=== PATIENT | female | born 1945 | race Caucasian/White ===

== ENCOUNTER 2017-12-08 09:34 | Emergency (ER) | payer MEDICARE, OTHER ==
[~2017-12-08] VITALS: Ht 157.5 cm; Wt 93.0 kg
[~2017-12-08 09:34] MED LIST: ASPI81TA82 PO; CARV3.12 PO; FENO160T2 PO; FURO40TA PO; GLYB1TAB51 PO; LANTINJ SQ; LISI2.5T3 PO; POTA-243 PO; PRAV20 PO; RIVA20 PO; SOTA80TA PO; TAMO20TA4 PO
[2017-12-08 09:37] VITALS: BP 116/58; PULSE 95; RESP 16; TEMP 98.9; O2SAT 94
--- NOTE | 2017-12-08 09:54 | PD ---
HPI Chief Complaint: Skin Problem Time Seen by Provider: 09:42 Travel History International Travel<30 days: No Contact w/Intl Traveler<30days: No Traveled to known affect area: No History of Present Illness HPI This 72-year-old female complaining of swelling of her right arm. It was quite red yesterday. The redness has improved considerably but she has persistent swelling. She has a history of clot in her right leg for which she had surgery. It sounds like it was not an arterial clot. She has on Xarelto. She has a pacemaker AICD on the left side of the chest. The left arm is not affected. The arm has been somewhat itchy. She is not aware of fever or chills. She says it seems somewhat tender on the medial epicondyle of the elbow PFSH Past Medical History Hx Anticoagulant Therapy: Yes (XARELTO) Cancer: Yes Cardiovascular Problems: Yes High Cholesterol: Yes Chemotherapy: Yes Diabetes: Yes Diminished Hearing: No Deep Vein Thrombosis: Yes Hypertension: Yes Past Surgical History Cardiac Surgery: Yes (DEFIB) Section: Yes Coronary Artery Bypass Graft: Yes Other Surgery: Yes (RIGHT LUMPECTOMY/ BLOOD CLOT TO LEG) Social History Alcohol Use: No Tobacco Use: No Allergies-Medications (Allergen,Severity, Reaction): Coded Allergies: adhesive (Unverified Allergy, Unknown, 12/08/17) Reported Meds & Prescriptions Reported Meds & Active Scripts Active Reported Spironolactone 25 Mg Tab 25 Mg PO DAILY Allergy Tablets (Chlorpheniramine Maleate) 4 Mg Tab 4 Mg PO Q4H PRN Senna-Tabs (Sennosides) 8.6 Mg Tab 8.6 Mg PO HS Coq-10 Tr (Coenzyme Q10 (Ubidecarenone)) 100 Mg Cap Xarelto (Rivaroxaban) 20 Mg Tab 20 Mg PO DAILY Klor-Con M20 (Potassium Chloride Microencaps) 20 Meq Tab 20 Meq PO DAILY Tamoxifen (Tamoxifen Citrate) 20 Mg Tab 20 Mg PO BID Carvedilol 3.125 Mg Tab 3.125 Mg PO BID Lantus Inj (Insulin Glargine) 1,000 Unit/10 Ml Vial 18 Units SQ HS Glipizide 5 Mg Tab 5 Mg PO DAILY Take 30 minutes before a meal Levothyroxine (Levothyroxine Sodium) 25 Mcg Tab 25 Mcg PO DAILY Furosemide 40 Mg Tab 40 Mg PO DAILY Multiple Vitamin 1 Tab 1 Tab PO DAILY Review of Systems General / Constitutional: No: Fever, Chills Eyes: No: Diploplia HENT: No: Headaches, Vertigo Cardiovascular: No: Chest Pain or Discomfort Respiratory: No: Cough Gastrointestinal: No: Nausea Genitourinary: No: Urgency, Frequency Musculoskeletal: No: Myalgias Skin: Positive Rash Psychiatric: No: Anxiety, Depression Hematologic/Lymphatic: No: Easy Bruising Physical Exam Narrative GENERAL: Well-developed female SKIN: Focused skin assessment warm/dry. HEAD: Atraumatic. Normocephalic. EYES: Pupils equal and round. No scleral icterus. No injection or drainage. ENT: No nasal bleeding or discharge. Mucous membranes pink and moist. NECK: Trachea midline. No JVD. CARDIOVASCULAR: Regular rate and rhythm. No murmur appreciated. RESPIRATORY: No accessory muscle use. Clear to auscultation. Breath sounds equal bilaterally. GASTROINTESTINAL: Abdomen soft, non-tender, nondistended. Hepatic and splenic margins not palpable. MUSCULOSKELETAL: No obvious deformities. No clubbing. No cyanosis. No edema. Examination of the right arm shows some soft tissue swelling which has fairly diffuse. Has good radial pulse. There is good sensation. Skin appears intact as really no redness at this time. NEUROLOGICAL: Awake and alert. No obvious cranial nerve deficits. Motor grossly within normal limits. Normal speech. PSYCHIATRIC: Appropriate mood and affect; insight and judgment normal. Data Data Last Documented VS Vital Signs Date Time Temp Pulse Resp B/P (MAP) Pulse Ox O2 Delivery O2 Flow Rate FiO2 12/08/17 09:37 98.9 95 16 116/58 (77) 94 Orders Orders Us Arm Venous Doppler (12/08/17 09:50) MDM Medical Decision Making Medical Screen Exam Complete: Yes Emergency Medical Condition: Yes Medical Record Reviewed: Yes Differential Diagnosis Differential includes allergic reaction, cellulitis, DVT Narrative Course Ultrasound as negative for thrombosis. Patient reports that the redness has improved considerably since yesterday. She has also describes considerable itching. I suspect she may have been bitten by a bug in had an allergic reaction. I do not see evidence of infection at this time I do not think antibiotics are warranted she will be released Diagnosis Primary Impression: Allergic reaction Disposition: 01 DISCHARGE HOME Condition: Stable Steven Cole MD Dec 08, 2017 09:54
[2017-12-08] MEDS ORDERED: SPIR25TA PO (10:06)
[2017-12-08] MEDS ORDERED: GLIP5TAB8 PO (10:06)
[2017-12-08] MEDS ORDERED: MULTTAB67 PO (10:06)
[2017-12-08] MEDS ORDERED: XARE20TA PO (10:06)
[2017-12-08] MEDS ORDERED: CARV3.12 PO (10:06)
[2017-12-08] MEDS ORDERED: COQ-100C5 (10:06)
[2017-12-08] MEDS ORDERED: TAMO20TA6 PO (10:06)
[2017-12-08] MEDS ORDERED: SENN8.6T36 PO (10:06)
[2017-12-08] MEDS ORDERED: LEVO25TA4 PO (10:06)
[2017-12-08] MEDS ORDERED: LANTUS2P SQ (10:06)
[2017-12-08] MEDS ORDERED: KLOR20TA3 PO (10:06)
[2017-12-08] MEDS ORDERED: FURO40TA PO (10:06)
[2017-12-08] MEDS ORDERED: ALLE4TAB10 PO (10:06)
--- NOTE | 2017-12-08 11:06 | RADRPT ---
EXAM DATE/TIME: 12/08/2017 10:30 [facility] COMPARISON: No previous studies available for comparison. INDICATIONS : Right arm swelling and redness. MEDICAL HISTORY : Hypercholesterolemia. Hypertension. Deep venous thrombosis. Anticoagulant therapy, Xarelto. SURGICAL HISTORY : CABG. Defibrillator. Right lumpectomy. Chemotherapy. ENCOUNTER: Initial ACUITY: 4 - 6 days PAIN SCORE: 5/10 LOCATION: Right arm. FINDINGS: There is spontaneous flow documented in the brachial, basilic, cephalic, axillary, and subclavian vei ns. The vessels are compressible and augmentation response is documented. No filling defects are se en. The flow is phasic with respiration. Direction of flow in the jugular vein is caudal. CONCLUSION: No thrombosis is identified within the right upper extremity. Miquel Lindsay MD on December 08, 2017 at 11:03 Board Certified Radiologist. This report was verified electronically.
== END 2017-12-08 11:44 | disposition home or self-care (01) ==
LOC: PHED 09:34
DX: T78.40XA Allergy, unspecified, initial encounter (principal); R22.31 Localized swelling, mass and lump, right upper limb; L53.9 Erythematous condition, unspecified; E11.9 Type 2 diabetes mellitus without complications; I10 Essential (primary) hypertension; E78.00 Pure hypercholesterolemia, unspecified; X58.XXXA Exposure to other specified factors, initial encounter; Z79.4 Long term (current) use of insulin; Z79.01 Long term (current) use of anticoagulants; Z95.810 Presence of automatic (implantable) cardiac defibrillator; Z86.718 Personal history of other venous thrombosis and embolism
CPT/HCPCS: 93971; 99284